=== PATIENT | male | born 1990 | race African-American/Black ===

== ENCOUNTER 2020-02-26 10:34 | Emergency (ER) | payer OTHER, SELFPAY ==
[2020-02-26 10:39] VITALS: BP 135/92; PULSE 65; RESP 16; TEMP 36.8; O2SAT 100
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
[2020-02-26 11:22] VITALS: BP 136/81; PULSE 70; RESP 18; O2SAT 99
== END 2020-02-26 11:24 | disposition home or self-care (01) ==
PROVIDERS: Emergency Provider Emergency Medicine
DX: S91.111D Laceration without foreign body of right great toe without damage to nail, subsequent encounter (principal); W31.89XD Contact with other specified machinery, subsequent encounter
CPT/HCPCS: 99282